=== PATIENT | female | born 1990 | race American Indian/Alaskan Native ===

== ENCOUNTER 2016-09-30 19:52 | Emergency (ER) | payer MEDICAID ==
[2016-09-30 20:05] VITALS: BP 101/60
--- NOTE | 2016-09-30 20:16 | EDM.PDOC ---
ED HPI GENERAL MEDICAL PROBLEM - General Chief Complaint: Skin Complaint Stated Complaint: GOODMAN [id number] Time Seen by Provider: 09/30/16 20:05 Source of Information: Reports: Patient - History of Present Illness INITIAL COMMENTS - FREE TEXT/NARRATIVE: burn to right forearm yesterday on car manifold while reaching in to reconnect gear shift. Onset: Other (yesterday) Quality: Reports: Burning Associated Symptoms: Reports: No Other Symptoms Right Wrist Pain Score (Numeric/FACES): 7 - Related Data Allergies Allergy/AdvReac Type Severity Reaction Status Date / Time Sulfa (Sulfonamide Allergy Hives Verified 09/30/16 19:58 Antibiotics) tape AdvReac Rash Uncoded 06/21/16 18:21 Home Meds: Home Meds . 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 ED EXAM, SKIN/RASH Exam: See Below Exam Limited By: No Limitations General Appearance: Alert Throat/Mouth: Normal Inspection Head: Atraumatic Neck: Normal Inspection Respiratory/Chest: No Respiratory Distress, Lungs Clear Cardiovascular: Regular Rate, Rhythm Neurological: Alert, Oriented Psychiatric: Normal Affect Location, Skin: Upper Extremity, Right Characteristics: Other (superficaial 1st degree burn right forearm with 3 dime size open second degree goodman, mild erythema to base, no weeping no signs of infection.) Course - Vital Signs Last Recorded V/S: Last Vital Signs Temp 98.4 F 09/30/16 19:59 Pulse 67 09/30/16 19:59 Resp 16 09/30/16 19:59 BP 101/60 09/30/16 19:59 Pulse Ox 100 09/30/16 19:59 - Orders/Labs/Meds Meds: Medications Discontinued Medications Generic Name Dose Route Start Last Admin Trade Name Efrain PRN Reason Stop Dose Admin Bacitracin 1 dose 09/30/16 20:21 09/30/16 20:26 Bacitracin Oint 1 Gm TOP 09/30/16 20:22 1 dose ONETIME ONE Administration Departure - Departure Time of Disposition: 20:25 Disposition: Home, Self-Care 01 Condition: good Clinical Impression: Burn - Discharge Information Instructions: Burn Care, [id number] Forms: ED Department Discharge Additional Instructions: follow up during clinic appointment to check to confirm tetnus status current antibiotic ointment and non adherent dressing to burn area, monitor for infection increased redness, fever drainage from wound area tylenol or ibuprofen for discomfort
[2016-09-30] MEDS ORDERED: Bacitracin Oint 1 GM U/D Packet TOP ONE (20:21)
== END 2016-09-30 20:37 | disposition home or self-care (01) ==
LOC: DL.ED 19:52
DX: T22.211A Burn of second degree of right forearm, initial encounter (principal); Z88.2 Allergy status to sulfonamides; Z91.048 Other nonmedicinal substance allergy status; Z87.891 Personal history of nicotine dependence; X58.XXXA Exposure to other specified factors, initial encounter
CPT/HCPCS: 99283

== ENCOUNTER 2016-11-17 22:52 | Emergency (ER) | payer MEDICAID ==
[2016-11-17 23:06] VITALS: BP 129/57
[2016-11-18 00:12] LABS: CHLORIDE,CL 100 mmol/L (101-111); SODIUM,NA 139 mmol/L (135-145)
--- NOTE | 2016-11-18 00:29 | EDM.PDOC ---
[id number] Complaint: LEGS ARE SWOLLEN Time Seen by Provider: 11/17/16 23:15 Source of Information: Reports: Patient History Limitations: Reports: No Limitations - History of Present Illness INITIAL COMMENTS - FREE TEXT/NARRATIVE: c/o left lower calf pain since noon today, no injury. No hx of blood clots, no traveling recently, occasional smoker. Pain worse when stepping or moving. 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 Left Leg Pain Score (Numeric/FACES): 6 - Related Data Allergies Allergy/AdvReac Type Severity Reaction Status Date / Time Sulfa (Sulfonamide Allergy Hives Verified 11/17/16 22:58 Antibiotics) tape AdvReac Rash Uncoded 06/21/16 18:21 Home Meds: Home Meds Ibuprofen 3 tab PO Q8H PRN 11/17/16 [History] Past Medical History - Past Health History Medical/Surgical History: Denies Medical/Surgical History Cardiovascular History: Reports: Other (See Below) Other Cardiovascular History: gestational hypertension Respiratory History: Reports: Pneumonia, 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 Social & Family History - Family History Family Medical History: Noncontributory - Tobacco Use Smoking Status *Q: Current Every Day Smoker Years of Tobacco use: 9 Packs/Tins Daily: 0.1 Used Tobacco, but Quit: No Second Hand Smoke Exposure: No - Caffeine Use Caffeine Use: Reports: Tea - Alcohol Use Days Per Week of Alcohol Use: 1 Number of Drinks Per Day: 6 Total Drinks Per Week: 6 - Recreational Drug Use Recreational Drug Use: No Review of Systems - Review of Systems Review Of Systems: ROS reveals no pertinent complaints other than HPI. ED EXAM, GENERAL - Physical Exam Exam: See Below Exam Limited By: No Limitations General Appearance: Alert, No Apparent Distress Eye Exam: Bilateral Eye: EOMI Ears: Normal External Exam Nose: Normal Inspection Throat/Mouth: Normal Oropharynx Head: Atraumatic, Normocephalic Neck: Normal Inspection Respiratory/Chest: No Respiratory Distress, Lungs Clear Cardiovascular: Normal Peripheral Pulses, Regular Rate, Rhythm Extremities: Normal Inspection, Normal Range of Motion, Normal Capillary Refill , Leg Pain (tender lateral calf-left). No: [place]'s Sign, Limited Range of Motion, Increased Warmth, Pallor, Redness Neurological: Alert, Oriented Psychiatric: Normal Affect, Normal Mood Skin Exam: Warm, Dry, Intact, Normal Color Course - Vital Signs Last Recorded V/S: Last Vital Signs Temp 98.2 F 11/17/16 23:05 Pulse 70 11/17/16 23:05 Resp 18 11/17/16 23:05 BP 129/57 L 11/17/16 23:05 Pulse Ox 100 11/17/16 23:05 - Orders/Labs/Meds Labs: Laboratory Tests 11/17/16 11/17/16 11/17/16 Range/Units 23:08 23:43 23:43 WBC 5.2 (5.0-10.0) 10^3/uL RBC 3.90 L (4.2-5.4) 10^6/uL Hgb 13.0 (12.0-16.0) g/dL Hct 39.0 (37.0-47.0) % MCV 100.0 (80-100) fL MCH 33.3 (27.0-34.0) pg MCHC 33.3 (33.0-35.0) g/dL Plt Count 225 (150-450) 10^3/uL Neut % (Auto) 64.4 (42.2-75.2) % Lymph % (Auto) 25.6 (20.5-50.1) % [place] % (Auto) 8.5 H (2-8) % Eos % (Auto) 1.3 (1.0-3.0) % Baso % (Auto) 0.2 (0.0-1.0) % D-Dimer, Quantitative < 100 (0-400) ng/mL Sodium (135-145) mmol/L Potassium (3.6-5.0) mmol/L Chloride (101-111) mmol/L Carbon Dioxide (21.0-31.0) mmol/L Anion Gap BUN (7-18) mg/dL Creatinine (0.6-1.3) mg/dL Est Cr Clr Drug Dosing mL/min Estimated GFR (MDRD) Glucose (74-105) mg/dL Calcium (8.4-10.2) mg/dl Urine Color Yellow (YELLOW) Urine Appearance Clear (CLEAR) Urine pH 7.5 (5.0-9.0) Ur Specific [place] 1.020 (1.005-1.030) Urine Protein 30 H (NEGATIVE) Urine Glucose (UA) Negative (NEGATIVE) Urine Ketones Trace H (NEGATIVE) Urine Occult Blood Negative (NEGATIVE) Urine Nitrite Negative (NEGATIVE) Urine Bilirubin Negative (NEGATIVE) Urine Urobilinogen 4.0 H (0.2-1.0) mg/dL Ur Leukocyte Esterase Negative (NEGATIVE) Urine RBC 0-5 /HPF Urine WBC 0-5 (0-5/HPF) /HPF Ur Epithelial Cells Moderate H /HPF Urine Bacteria Few (0-FEW/HPF) /HPF 11/17/16 Range/Units 23:43 WBC (5.0-10.0) 10^3/uL RBC (4.2-5.4) 10^6/uL Hgb (12.0-16.0) g/dL Hct (37.0-47.0) % MCV (80-100) fL MCH (27.0-34.0) pg MCHC (33.0-35.0) g/dL Plt Count (150-450) 10^3/uL Neut % (Auto) (42.2-75.2) % Lymph % (Auto) (20.5-50.1) % [place] % (Auto) (2-8) % Eos % (Auto) (1.0-3.0) % Baso % (Auto) (0.0-1.0) % D-Dimer, Quantitative (0-400) ng/mL Sodium 139 (135-145) mmol/L Potassium 3.7 (3.6-5.0) mmol/L Chloride 100 L (101-111) mmol/L Carbon Dioxide 28.0 (21.0-31.0) mmol/L Anion Gap 14.7 BUN 14 (7-18) mg/dL Creatinine 0.6 (0.6-1.3) mg/dL Est Cr Clr Drug Dosing 105.34 mL/min Estimated GFR (MDRD) > 60 Glucose 97 (74-105) mg/dL Calcium 9.2 (8.4-10.2) mg/dl Urine Color (YELLOW) Urine Appearance (CLEAR) Urine pH (5.0-9.0) Ur Specific [place] (1.005-1.030) Urine Protein (NEGATIVE) Urine Glucose (UA) (NEGATIVE) Urine Ketones (NEGATIVE) Urine Occult Blood (NEGATIVE) Urine Nitrite (NEGATIVE) Urine Bilirubin (NEGATIVE) Urine Urobilinogen (0.2-1.0) mg/dL Ur Leukocyte Esterase (NEGATIVE) Urine RBC /HPF Urine WBC (0-5/HPF) /HPF Ur Epithelial Cells /HPF Urine Bacteria (0-FEW/HPF) /HPF Departure - Departure Time of Disposition: 00:25 Disposition: Home, Self-Care 01 Condition: Good Clinical Impression: Leg pain, left, Muscle spasm of calf - Discharge Information Instructions: Muscle Cramps and Spasms Forms: ED Department Discharge Additional Instructions: alternate tylenol and ibuprofen for discomfort lizeth wrap for comfort as needed warm pack to area clinic follow up if not improving
== END 2016-11-18 00:35 | disposition home or self-care (01) ==
LOC: DL.ED 22:52
DX: M62.831 Muscle spasm of calf (principal); F41.9 Anxiety disorder, unspecified; F17.210 Nicotine dependence, cigarettes, uncomplicated; Z88.2 Allergy status to sulfonamides; Z91.09 Other allergy status, other than to drugs and biological substances; Z90.49 Acquired absence of other specified parts of digestive tract; Z87.01 Personal history of pneumonia (recurrent)
CPT/HCPCS: 36415; 80048; 81001; 85025; 85379; 99284

== ENCOUNTER 2017-11-15 22:54 | Emergency (ER) | payer MEDICAID ==
[2017-11-15 23:19] VITALS: BP 116/70
== END 2017-11-16 00:13 | disposition left against medical advice (07) ==
LOC: DL.ED 22:54
DX: Z53.21 Procedure and treatment not carried out due to patient leaving prior to being seen by health care provider (principal)

== ENCOUNTER 2018-10-13 10:47 | Emergency (ER) | payer MEDICAID ==
[2018-10-13] MEDS ORDERED: LORazepam 1 MG Tab PO ONE (11:07)
[2018-10-13] MEDS ORDERED: Ondansetron 4 MG Tab.DIS PO ONE ×2 (11:07)
[2018-10-13] MEDS ORDERED: diphenhydrAMINE 50 MG/ML SDV IVPUSH ONE (11:33)
[2018-10-13] MEDS ORDERED: MVI, Adult with Vitamin K 10 ML, Folic Acid 1 MG, Thiamine 100 MG in Lactated Ringers 1... IV ONE ×4 (11:33)
[2018-10-13] MEDS ORDERED: Pantoprazole 40 MG Vial IVPUSH ONE (11:33)
[2018-10-13] MEDS ORDERED: Sodium Chloride 0.9% 10 ML Syringe FLUSH PRN (11:33)
--- NOTE | 2018-10-13 11:37 | EDM.PDOC ---
ED HPI GENERAL MEDICAL PROBLEM - General Chief Complaint: Behavioral/Psych Stated Complaint: ANXIETY ATTACK,VOMITTING Time Seen by Provider: 10/13/18 11:15 Source of Information: Reports: Patient History Limitations: Reports: No Limitations - History of Present Illness INITIAL COMMENTS - FREE TEXT/NARRATIVE: patient comes emergency department today with complaints of nausea vomiting abdominal pain and anxiety.patient has been drinking alcohol quite heavily for the past 3 days. Today she is very anxious and agitated primarily because she is so nauseated and vomiting. She is unable to keep anything down at home. Every time that she drinks water she throws it up immediately. She does not have any chest pain syncope palpitations. No shortness of breath or difficulty breathing. She does complain of abdominal pain primarily in the epigastric region. No hematuria dysuria or urinary frequency. She has also had diarrhea. She is unsure if she is .no history of pancreatitis. No fever no chills. Last time she drank was about 3 weeks ago and she drank quite heavily for 7-10 days and had a very similar symptomology at that time post alcohol ingestion. 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 Social & Family History - Family History Family Medical History: Noncontributory - Tobacco Use Smoking Status *Q: Current Some Day Smoker Years of Tobacco use: 10 Packs/Tins Daily: 0.2 Used Tobacco, but Quit: No - Caffeine Use Caffeine Use: Reports: None - Alcohol Use Days Per Week of Alcohol Use: 1 Number of Drinks Per Day: 6 Total Drinks Per Week: 6 - Recreational Drug Use Recreational Drug Use: No ED ROS GENERAL - Review of Systems Review Of Systems: ROS reveals no pertinent complaints other than HPI. ED EXAM, GI/ABD - Physical Exam Exam: See Below General Appearance: Alert, Anxious Eyes: Bilateral: EOMI Ears: Normal External Exam Nose: Normal Inspection, Normal Mucosa Throat/Mouth: Normal Inspection, Normal Lips Head: Atraumatic, Normocephalic Neck: Normal Inspection, Supple, Non-Tender Respiratory/Chest: No Respiratory Distress, Lungs Clear, Normal Breath Sounds Cardiovascular: Normal Peripheral Pulses, Regular Rate, Rhythm, Tachycardia GI/Abdominal Exam: Normal Bowel Sounds, Soft, No Organomegaly, No Distention, No Mass, Tender (epigastric region without guarding or rebound.) Back Exam: Normal Inspection, Full Range of Motion. No: CVA Tenderness (L), CVA Tenderness (R) Extremities: Normal Inspection, Normal Range of Motion, Normal Capillary Refill , Other (fine tremor noted peripherally) Neurological: Alert, Oriented, Normal Cognition, No Motor/Sensory Deficits Psychiatric: Anxious Course - Vital Signs Last Recorded V/S: Last Vital Signs Temp 36.7 C 10/13/18 11:00 Pulse 105 H 10/13/18 11:00 Resp 18 10/13/18 11:00 BP 132/88 10/13/18 11:00 Pulse Ox 100 10/13/18 11:00 - Orders/Labs/Meds Orders: Active Orders 24 hr Category Date Time Status Peripheral IV Care [RC] . DIRECTED Care 10/13/18 11:33 Active Lactated Ringers [Ringers, Lactated] 1,000 ml Med 10/13/18 13:24 Active IV .BOLUS Sodium Chloride 0.9% [Saline Flush] Med 10/13/18 11:33 Active 10 ml FLUSH ASDIRECTED PRN Peripheral IV Insertion Adult [OM.PC] Stat Oth 10/13/18 11:32 Ordered Medication Orders Lactated Ringer's (Ringers, Lactated) 1,000 mls @ 1,000 mls/hr IV .BOLUS ONE Stop: 10/13/18 14:23 Last Admin: 10/13/18 13:48 Dose: 1,000 mls/hr Sodium Chloride (Saline Flush) 10 ml FLUSH ASDIRECTED PRN PRN Reason: Keep Vein Open Last Admin: 10/13/18 12:10 Dose: 10 ml Labs: Laboratory Tests 10/13/18 10/13/18 10/13/18 Range/Units 11:40 11:40 13:24 WBC 3.4 L (5.0-10.0) 10^3/uL RBC 4.49 (4.2-5.4) 10^6/uL Hgb 14.5 D (12.0-16.0) g/dL Hct 42.3 (37.0-47.0) % MCV 94.2 D (80-100) fL MCH 32.3 (27.0-34.0) pg MCHC 34.3 (33.0-35.0) g/dL Plt Count 206 (150-450) 10^3/uL Neut % (Auto) 58.5 (42.2-75.2) % Lymph % (Auto) 32.3 (20.5-50.1) % [place] % (Auto) 8.3 H (2-8) % Eos % (Auto) 0.3 L (1.0-3.0) % Baso % (Auto) 0.6 (0.0-1.0) % Sodium 135 (135-145) mmol/L Potassium 3.3 L (3.6-5.0) mmol/L Chloride 95 L (101-111) mmol/L Carbon Dioxide 21.0 (21.0-31.0) mmol/L Anion Gap 22.3 BUN 5 L (7-18) mg/dL Creatinine 0.7 (0.6-1.3) mg/dL Est Cr Clr Drug Dosing 93.79 mL/min Estimated GFR (MDRD) > 60 BUN/Creatinine Ratio 7.14 Glucose 88 (74-105) mg/dL Calcium 8.7 (8.4-10.2) mg/dl Total Bilirubin 1.0 (0.2-1.0) mg/dL AST 81 H (10-42) IU/L ALT 83 H (10-60) IU/L Alkaline Phosphatase 95 (42-121) IU/L Total Protein 7.9 (6.7-8.2) g/dl Albumin 4.5 (3.2-5.5) g/dl Globulin 3.4 Albumin/Globulin Ratio 1.32 Lipase 26 (22-51) U/L Urine Color Yellow (YELLOW) Urine Appearance Clear (CLEAR) Urine pH 7.0 (5.0-9.0) Ur Specific [place] 1.010 (1.005-1.030) Urine Protein Negative (NEGATIVE) Urine Glucose (UA) Negative (NEGATIVE) Urine Ketones 15 H (NEGATIVE) Urine Occult Blood Negative (NEGATIVE) Urine Nitrite Negative (NEGATIVE) Urine Bilirubin Negative (NEGATIVE) Urine Urobilinogen 0.2 (0.2-1.0) mg/dL Ur Leukocyte Esterase Negative (NEGATIVE) Urine HCG, Qual Urine Opiates Screen (NEGATIVE) Ur Oxycodone Screen (NEGATIVE) Urine Methadone Screen (NEGATIVE) Ur Barbiturates Screen (NEGATIVE) U Tricyclic Antidepress (NEGATIVE) Ur Phencyclidine Scrn (NEGATIVE) Ur Amphetamine Screen (NEGATIVE) U Methamphetamines Scrn (NEGATIVE) Urine MDMA Screen (NEGATIVE) U Benzodiazepines Scrn (NEGATIVE) Urine Cocaine Screen (NEGATIVE) U Marijuana (THC) Screen (NEGATIVE) Ethyl Alcohol 77 mg/dL 10/13/18 10/13/18 Range/Units 13:24 13:24 WBC (5.0-10.0) 10^3/uL RBC (4.2-5.4) 10^6/uL Hgb (12.0-16.0) g/dL Hct (37.0-47.0) % MCV (80-100) fL MCH (27.0-34.0) pg MCHC (33.0-35.0) g/dL Plt Count (150-450) 10^3/uL Neut % (Auto) (42.2-75.2) % Lymph % (Auto) (20.5-50.1) % [place] % (Auto) (2-8) % Eos % (Auto) (1.0-3.0) % Baso % (Auto) (0.0-1.0) % Sodium (135-145) mmol/L Potassium (3.6-5.0) mmol/L Chloride (101-111) mmol/L Carbon Dioxide (21.0-31.0) mmol/L Anion Gap BUN (7-18) mg/dL Creatinine (0.6-1.3) mg/dL Est Cr Clr Drug Dosing mL/min Estimated GFR (MDRD) BUN/Creatinine Ratio Glucose (74-105) mg/dL Calcium (8.4-10.2) mg/dl Total Bilirubin (0.2-1.0) mg/dL AST (10-42) IU/L ALT (10-60) IU/L Alkaline Phosphatase (42-121) IU/L Total Protein (6.7-8.2) g/dl Albumin (3.2-5.5) g/dl Globulin Albumin/Globulin Ratio Lipase (22-51) U/L Urine Color (YELLOW) Urine Appearance (CLEAR) Urine pH (5.0-9.0) Ur Specific [place] (1.005-1.030) Urine Protein (NEGATIVE) Urine Glucose (UA) (NEGATIVE) Urine Ketones (NEGATIVE) Urine Occult Blood (NEGATIVE) Urine Nitrite (NEGATIVE) Urine Bilirubin (NEGATIVE) Urine Urobilinogen (0.2-1.0) mg/dL Ur Leukocyte Esterase (NEGATIVE) Urine HCG, Qual Negative Urine Opiates Screen Negative (NEGATIVE) Ur Oxycodone Screen Negative (NEGATIVE) Urine Methadone Screen Negative (NEGATIVE) Ur Barbiturates Screen Negative (NEGATIVE) U Tricyclic Antidepress Negative (NEGATIVE) Ur Phencyclidine Scrn Negative (NEGATIVE) Ur Amphetamine Screen Negative (NEGATIVE) U Methamphetamines Scrn Negative (NEGATIVE) Urine MDMA Screen Negative (NEGATIVE) U Benzodiazepines Scrn Negative (NEGATIVE) Urine Cocaine Screen Negative (NEGATIVE) U Marijuana (THC) Screen Negative (NEGATIVE) Ethyl Alcohol mg/dL Meds: Medications Generic Name Dose Route Start Last Admin Trade Name Freq PRN Reason Stop Dose Admin Lactated Ringer's 1,000 mls @ 1,000 mls/hr 10/13/18 13:24 10/13/18 13:48 Ringers, Lactated IV 10/13/18 14:23 1,000 mls/hr .BOLUS ONE Administration Sodium Chloride 10 ml 10/13/18 11:33 10/13/18 12:10 Saline Flush FLUSH 10 ml ASDIRECTED PRN Administration Keep Vein Open Discontinued Medications Generic Name Dose Route Start Last Admin Trade Name Freq PRN Reason Stop Dose Admin Diphenhydramine HCl 25 mg 10/13/18 11:33 10/13/18 12:03 Benadryl IVPUSH 10/13/18 11:34 25 mg ONETIME ONE Administration Multivitamins/Minerals 10 ml/ 1,011.2 mls @ 999 mls/hr 10/13/18 11:33 12:04 Folic Acid 1 mg/ Thiamine HCl IV 10/13/18 12:33 999 mls/hr 100 mg/ Lactated Ringer's ONETIME ONE Administration Lorazepam 1 mg 10/13/18 11:07 10/13/18 11:11 Ativan PO 10/13/18 11:08 1 mg ONETIME ONE Administration Ondansetron HCl 4 mg 10/13/18 11:07 Zofran Odt PO 10/13/18 11:08 ONETIME ONE Ondansetron HCl 4 mg 10/13/18 11:07 10/13/18 11:11 Zofran Odt PO 10/13/18 11:08 4 mg ONETIME ONE Administration Pantoprazole Sodium 40 mg 10/13/18 11:33 10/13/18 12:03 Protonix Iv IVPUSH 10/13/18 11:34 40 mg ONETIME ONE Administration - Re-Assessments/Exams Free Text/Narrative Re-Assessment/Exam: 10/13/18 14:03 initially given ativan and zofran PO without any change. IV banana bag. Benadryl IV Protonix IV Labs pretty unremarkable except for a mild elevation of the AST ALT most likely due to acute or chronic alcohol usage. She slept over the next hour or so and feels much better. We will discharge her home with alcohol gastritis and alcohol withdrawal. Reviewed labs with the patient. She is comfortable with this plan. She is uninterested in alcohol treatment at this time. 10/13/18 14:03 Departure - Departure Time of Disposition: 14:05 Disposition: Home, Self-Care 01 Clinical Impression: Elevated liver enzymes Alcoholic gastritis Qualifiers: Chronicity: unspecified Gastritis bleeding: presence of bleeding unspecified Qualified Code(s): K29.20 - Alcoholic gastritis without bleeding Alcohol withdrawal Qualifiers: Complication of substance-induced condition: with unspecified complication Qualified Code(s): F10.239 - Alcohol dependence with withdrawal, unspecified - Discharge Information Instructions: Alcohol Withdrawal Syndrome, [id number], Gastritis, Adult, Easy -to-Read, Alcohol Use Disorder Forms: ED Department Discharge Additional Instructions: NO ALCOHOL INGESTION. If you are interested in alcohol treatment please see [facility] or your primary care provider. Omeprazole, 1 tablet daily for the next 28 days. RX given to the patient. Carafate 1 tablet 4 times a day. 1/2 hour before meals and bedtime. RX given # 120. Phenergan 1 tablet every 6-8 hrs as needed for nausea vomiting also will help with withdrawals. RX given to the patient #9. Return to the ED if new or worsening symptoms. Follow up with PCP in the next 4-6 days if not improving sooner if worse. - My Orders Last 24 Hours: My Active Orders 10/13/18 11:32 Peripheral IV Insertion Adult [OM.PC] Stat 10/13/18 11:33 Peripheral IV Care [RC] . DIRECTED Sodium Chloride 0.9% [Saline Flush] 10 ml FLUSH ASDIRECTED PRN 10/13/18 13:24 Lactated Ringers [Ringers, Lactated] 1,000 ml IV .BOLUS - Assessment/Plan Last 24 Hours: My Active Orders 10/13/18 11:32 Peripheral IV Insertion Adult [OM.PC] Stat 10/13/18 11:33 Peripheral IV Care [RC] . DIRECTED Sodium Chloride 0.9% [Saline Flush] 10 ml FLUSH ASDIRECTED PRN 10/13/18 13:24 Lactated Ringers [Ringers, Lactated] 1,000 ml IV .BOLUS Assessment:: Alcoholic gastritis Alcohol withdrawal with nausea vomiting anxiety. alcohol misusage. Plan: NO ALCOHOL INGESTION. If you are interested in alcohol treatment please see [facility] or your primary care provider. Omeprazole, 1 tablet daily for the next 28 days. RX given to the patient. Carafate 1 tablet 4 times a day. 1/2 hour before meals and bedtime. RX given # 120. Phenergan 1 tablet every 6-8 hrs as needed for nausea vomiting also will help with withdrawals. RX given to the patient #9. Return to the ED if new or worsening symptoms. Follow up with PCP in the next 4-6 days if not improving sooner if worse.
[2018-10-13 12:09] LABS: ANION GAP 22.3; CHLORIDE,CL 95 mmol/L (101-111); SODIUM,NA 135 mmol/L (135-145)
[2018-10-13] MEDS ORDERED: Lactated Ringers 1,000 ML IV ONE (13:24)
[2018-10-13] MEDS ORDERED: GI Cocktail Oral Solution 30 ML PO ONE (14:13)
[2018-10-13 14:40] VITALS: BP 142/63
== END 2018-10-13 14:38 | disposition home or self-care (01) ==
LOC: DL.ED 10:47
DX: K29.20 Alcoholic gastritis without bleeding (principal); F10.239 Alcohol dependence with withdrawal, unspecified; F17.210 Nicotine dependence, cigarettes, uncomplicated; R74.8 Abnormal levels of other serum enzymes; Z88.2 Allergy status to sulfonamides; Z91.048 Other nonmedicinal substance allergy status; Y90.3 Blood alcohol level of 60-79 mg/100 ml
CPT/HCPCS: 36415; 80053; 80305; 81003; 81025; 83690; 85025; 96365; 96367; 96375; 99284; A9270; C9113; G0480; J1200; J3411; J7120; J3490

== ENCOUNTER 2024-04-01 00:44 | Emergency (ER) | payer SELFPAY ==
[2024-04-01 01:55] VITALS: BP 129/79; PULSE 86
== END 2024-04-01 02:10 | disposition home or self-care (01) ==
LOC: DL.ED 00:44
DX: Z02.89 Encounter for other administrative examinations (principal); F10.120 Alcohol abuse with intoxication, uncomplicated; F41.9 Anxiety disorder, unspecified; F17.210 Nicotine dependence, cigarettes, uncomplicated; R45.851 Suicidal ideations; R45.7 State of emotional shock and stress, unspecified; Z90.49 Acquired absence of other specified parts of digestive tract; Z88.2 Allergy status to sulfonamides; Z91.048 Other nonmedicinal substance allergy status
CPT/HCPCS: 99283; 99284